=== PATIENT | female | born 1980 | race Hispanic/Latino ===

== ENCOUNTER 2020-10-25 23:53 | Emergency (ER) | payer SELFPAY ==
[2020-10-26 00:03] VITALS: BP 182/125
--- NOTE | 2020-10-27 11:24 | Electrocardiograph Report ---
[facility] Test Date: 2020-10-26 Test Time: 00:09:17 Pat Name: SATISH BUTTERFIELD Department: Room: Gender: F Cytometry Technologist: KARLY : 1980 Requested By: ANSON JOHNSON Order Number: [id number] Reading MD: Jerry Higuera Measurements Intervals [employer] Rate: 99 P: 69 MD: 153 QRS: 51 QRSD: 91 T: 62 QT: 384 QTc: 492 Interpretive Statements Sinus rhythm Consider left ventricular hypertrophy No previous ECG available for comparison Electronically Signed On 10-27-2020 11:23:39 EDT by Jerry Higuera
== END 2020-10-26 01:27 | disposition left against medical advice (07) ==
LOC: ED 23:53
DX: H57.11 Ocular pain, right eye (principal); Z53.21 Procedure and treatment not carried out due to patient leaving prior to being seen by health care provider
CPT/HCPCS: 93005